=== PATIENT | male | born 2000 | race American Indian/Alaskan Native ===

== ENCOUNTER 2018-03-19 05:09 | Emergency (ER) | payer BC ==
[2018-03-19 05:22] VITALS: BP 147/93
--- NOTE | 2018-03-19 06:30 | Emergency Department Report ---
ED General Adult HPI - General Chief complaint: Allergic Reaction Stated complaint: ALLERGIC REACTION Time Seen by Provider: 03/19/18 06:25 Source: patient Mode of arrival: Ambulatory Limitations: No Limitations - History of Present Illness Initial comments: 18-year-old -[place] male with a past medical history of eczema comes in stating that he is having allergic reaction times today. Patient reports that he feels his eczema sclerae not. Patient denies any trouble breathing denies any throat closing denies any difficulty breathing. -: This afternoon Location: face, upper extremity Severity scale (0 -10): 0 Improves with: none Worsens with: none Associated Symptoms: denies other symptoms - Related Data Previous Rx's Medication Instructions Recorded Last Taken Type Loratadine [Claritin] 10 mg PO DAILY #30 tablet 03/19/18 Unknown Rx Triamcinolone 0.025% [Kenalog 1 applic TP TID #2 tube 03/19/18 Unknown Rx 0.025% CREAM] Allergies Allergy/AdvReac Type Severity Reaction Status Date / Time No Known Allergies Allergy Verified 03/19/18 05:22 ED Review of Systems ROS: Stated complaint: ALLERGIC REACTION Other details as noted in HPI Skin: rash ED Past Medical Hx - Past Medical History Previous Medical History?: No - Surgical History Past Surgical History?: No - Social History Smoking Status: Never Smoker Substance Use Type: None - Medications Home Medications: Home Medications Medication Instructions Recorded Confirmed Last Taken Type Loratadine [Claritin] 10 mg PO DAILY #30 tablet 03/19/18 Unknown Rx Triamcinolone 0.025% [Kenalog 1 applic TP TID #2 tube 03/19/18 Unknown Rx 0.025% CREAM] ED Physical Exam - General Limitations: No Limitations General appearance: alert, in no apparent distress - Head Head exam: Present: atraumatic, normocephalic - ENT ENT exam: Present: mucous membranes moist - Respiratory Respiratory exam: Present: normal lung sounds bilaterally. Absent: respiratory distress - Neurological Exam Neurological exam: Present: alert, oriented X3 - Expanded Skin Exam Expanded Type of lesion: Present: rash Distribution of rash: face, RUE, LUE Description of rash: Present: macular, purpuic. Absent: tenderness, erythematous, crusting, discharge, fluctuant, indurated ED Course Vital Signs 03/19/18 03/19/18 05:08 05:23 Temperature 98.6 F 98.6 F Pulse Rate 66 64 Respiratory 20 18 Rate Blood Pressure 147/93 147/93 O2 Sat by Pulse 99 98 Oximetry ED Medical Decision Making - Medical Decision Making Patient has been evaluated by this provider fast track. Discussed the patient I will place him on triamcinolone 0.025% Patient needs to follow-up with his primary care provider. Critical care attestation.: If time is entered above; I have spent that time in minutes in the direct care of this critically ill patient, excluding procedure time. ED Disposition Clinical Impression: Eczema Qualifiers: Eczema type: intrinsic Qualified Code(s): L20.84 - Intrinsic (allergic) eczema Disposition: TO HOME OR SELFCARE Is pt being admited?: No Does the pt Need Aspirin: No Condition: Stable Instructions: Eczema (ED) Additional Instructions: Please use cream to rash. Please take Claritin daily. Follow up with her primary care provider is symptoms persist or gets worse. Prescriptions: Loratadine [Claritin] 10 mg PO DAILY #30 tablet Triamcinolone 0.025% [Kenalog 0.025% CREAM] 1 applic TP TID #2 tube Referrals: PRIMARY CARE, [Primary Care Provider] - 3-5 Days Forms: Work/School Release Form(ED)
== END 2018-03-19 06:37 | disposition home or self-care (01) ==
LOC: ED 05:09
DX: L30.9 Dermatitis, unspecified (principal)
CPT/HCPCS: 99282